=== PATIENT | female | born 1965 | race Caucasian/White ===

== ENCOUNTER → 2018-06-07 | Outpatient (CLI) | payer OTHER ==
[~2018-06-07] MED LIST: ADULT LOW DOSE81 MG PO; CLONIDINE0.1 MG/24 TD; DOXYCYCLINE MO100 MG PO; DUONEB 3ML 3 MG/3 ML INH; ESCITALOPRAM OX10 MG PO; LOMOTIL 0.025 M1 TA1 PO; LOSARTAN POTAS100 M1 PO; MEDROL DOSEPAK4 MG PO; METOPROLOL SUCC50 M1 PO; PHENERGAN W/DM120 ML PO; PREDNISONE10 MG PO; PROTONIX40 MG PO; TERAZOSIN HCL2 M1 PO; ZOFRAN ODT4 MG SL
== END | disposition home or self-care (01) ==
LOC: RAD 16:26
DX: M54.5 Low back pain (principal); R20.0 Anesthesia of skin

== ENCOUNTER 2023-08-31 09:59 | Emergency (ER) | payer OTHER ==
[~2023-08-31] VITALS: Ht 162.5 cm; Wt 97.1 kg
[2023-08-31] MEDS ORDERED: HYDROCHLOROTH12.5 M2 PO (10:15)
[2023-08-31] MEDS ORDERED: LEVOTHYROXINE112 MCG PO (10:15)
[2023-08-31] MEDS ORDERED: CITALOPRAM20 MG PO (10:16)
[2023-08-31] MEDS ORDERED: CARVEDILOL25 MG PO (10:17)
[2023-08-31] MEDS ORDERED: CLONAZEPAM0.5 M2 PO (10:19)
[2023-08-31] MEDS ORDERED: SODIUM CHLORIDE 0.9% 100 ML IV ONE (10:32)
[2023-08-31] MEDS ORDERED: IOHEXOL 350 MG/ML 100 ML VIAL IV ONE (10:32)
[2023-08-31 10:49] LABS: BASO % 0.5 % (0.0-1.0); EOS # 0.3 10*3/uL (0.0-0.4); EOS % 5.3 % (1.0-4.0); HEMATOCRIT 37.3 % (37.0-47.0); LYMPH # 2.1 10*3/uL (1.3-4.4); LYMPH % 33.5 % (27.0-41.0); MEAN CELL VOLUME 93.5 fl (81.0-99.0); MEAN CORPUSCULAR HGB 31.6 pg (27.0-31.0); MEAN CORPUSCULAR HGB CONC 33.8 g/dl (33.0-37.0); MEAN PLATELET VOLUME 9.2 fl (9.6-12.3); MONO # 0.5 10*3/uL (0.1-1.0); MONO % 8.1 % (3.0-9.0); NEUT # 3.3 10*3/uL (2.3-7.9); NEUT % 52.4 % (47.0-73.0); PLATELET COUNT AUTOMATED 245 10*3/uL (130-400); RED BLOOD COUNT 3.99 10*6/uL (4.10-5.10); WHITE BLOOD COUNT 6.3 10*3/uL (4.8-10.8)
[2023-08-31 11:16] LABS: ALKALINE PHOSPHATASE 51 U/L (46-116); BUN 12 mg/dl (9-23); CHLORIDE 102 mmol/L (98-107); POTASSIUM 3.5 mmol/L (3.4-5.1); SGPT/ALT 21 U/L (5-49); TOTAL PROTEIN 6.7 gm/dL (6.0-8.0)
[2023-08-31 11:30] LABS: ACT PARTIAL THROMBO TIME 30.2 SECONDS (20.0-32.1)
[2023-08-31] MEDS ORDERED: ASPIRIN 325 MG TAB PO ONE (11:40)
== END 2023-08-31 13:39 | disposition home or self-care (01) ==
LOC: ED 09:59
PROVIDERS: Emergency Medicine
DX: G45.9 Transient cerebral ischemic attack, unspecified (principal); I10 Essential (primary) hypertension; E03.9 Hypothyroidism, unspecified; K21.9 Gastro-esophageal reflux disease without esophagitis; Z88.0 Allergy status to penicillin; Z88.2 Allergy status to sulfonamides; Z79.899 Other long term (current) drug therapy; Z98.890 Other specified postprocedural states; Z90.49 Acquired absence of other specified parts of digestive tract

== ENCOUNTER → 2024-06-30 | Outpatient (CLI) | payer OTHER ==
[~2024-06-30] MED LIST changes: +CARVEDILOL25 MG PO; +CITALOPRAM20 MG PO; +CLONAZEPAM0.5 M2 PO; +HYDROCHLOROTH12.5 M2 PO; +LEVOTHYROXINE112 MCG PO
== END | disposition home or self-care (01) ==
LOC: RAD 02:22
PROVIDERS: ATTEND Nurse Practitioner
DX: M19.042 Primary osteoarthritis, left hand (principal); M19.041 Primary osteoarthritis, right hand; M25.742 Osteophyte, left hand; M25.741 Osteophyte, right hand; M79.641 Pain in right hand; M79.642 Pain in left hand